=== PATIENT | male | born 1950 | race African-American/Black ===

== ENCOUNTER → 2017-08-24 | Outpatient (CLI) | payer MEDICARE, OTHER ==
--- NOTE | 2017-08-24 14:44 | RADIOLOGY REPORT (SQ) ---
EXAM DESCRIPTION: VENOUS UNILATERAL LOWER COMPLETED DATE/TIME: 08/24/2017 2:21 pm REASON FOR STUDY: LLE PAIN M79.605 PAIN IN LEFT LEG COMPARISON: None. TECHNIQUE: Dynamic and static rdz scale and color images acquired of the left leg venous system. Se lected spectral images acquired with additional compression and augmentation maneuvers. The contralat eral common femoral vein and saphenofemoral junction were also imaged. Images stored on PACS. LIMITATIONS: None. FINDINGS: COMMON FEMORAL: Normal phasicity, compression and augmentation. No visualized echogenic ma terial on rdz scale. No defects on color images. FEMORAL: Normal compression and augmentation. No visualized echogenic material on rdz scale. No defe cts on color images. POPLITEAL: Normal compression, augmentation. No visualized echogenic material on rdz scale. No defec ts on color images. CALF VESSELS: Normal compression, augmentation. No visualized echogenic material on drz scale. No de fects on color images. GSV and SSV: Normal compression, augmentation. No visualized echogenic material on rdz scale. No def ects on color images. ANY DEEP VENOUS INSUFFICIENCY: No. ANY EVIDENCE OF POPLITEAL CYST: No. OTHER: No other significant finding. CONTRALATERAL COMMON FEMORAL VEIN AND SAPHENOFEMORAL JUNCTION: Normal phasicity, compression and augmentation. No visualized echogenic material on rdz scale. No de fects on color images. IMPRESSION: NO EVIDENCE DVT OR SVT IN THE LEFT LEG. TECHNICAL DOCUMENTATION: JOB ID: [id number] [employer]- All Rights Reserved
== END ==
LOC: SP 12:47
PROVIDERS: ATTEND Physician Assistant Medical
DX: M79.605 Pain in left leg (principal); Z86.718 Personal history of other venous thrombosis and embolism
CPT/HCPCS: 93971

== ENCOUNTER → 2018-02-06 | Outpatient (CLI) | payer OTHER ==
--- NOTE | 2018-02-06 19:16 | RADIOLOGY REPORT (SQ) ---
EXAM DESCRIPTION: MRI RT LOWER JOINT WITHOUT COMPLETED DATE/TIME: 02/06/2018 3:24 pm REASON FOR STUDY: ANILA KNEE PAIN COMPARISON: None. TECHNIQUE: Rightknee images acquired and stored on PACS. Multiplanar images include fat sensitive s equences as T1, water sensitive sequences as FST2 or STIR, cartilage sensitive sequences as FSPD, and gradient echo sequences. LIMITATIONS: None. FINDINGS: JOINT AND BURSAE: Small suprapatellar knee joint effusion. There is a Rvai's cyst with m ultiple subcentimeter loose bodies present. There are also subcentimeter loose bodies along a disten ded popliteus tendon sheath. These findings are best shown on coronal images 22-24, axial image 20, and sagittal image 16 BONE CORTEX AND MARROW: No alteration of signal to suggest marrow replacement. No worrisome bone lesi ons. No occult fracture. ACL: Intact anterior band PCL: Intact. MCL: Intact. No periligamentous edema or fluid. LCL: Intact. No periligamentous edema or fluid. MEDIAL MENISCUS: Diffuse horizontal tear mid body and posterior horn medial meniscus. No paramenisca l cyst. LATERAL MENISCUS: Diffuse horizontal tear throughout the entire lateral meniscus. No parameniscal cy st. MEDIAL COMPARTMENT: Moderate chondromalacia. No bone bruises or reactive marrow edema. Small osteoph ytes. LATERAL COMPARTMENT: Moderate to high-grade chondromalacia. No bone bruises or reactive marrow edema. No osteophytes. PATELLA: High-grade patellar chondromalacia. Small subcortical cyst in the anterior aspect lateral f emoral condyle at the patellofemoral joint. Medial and lateral retinacula intact. EXTENSOR MECHANISM: Intact. Quadriceps and patella tendons normal. SOFT TISSUES: Adjacent muscles and subcutaneous tissues normal. Normal flow void in popliteal artery and vein. OTHER: No other significant finding. IMPRESSION: Diffuse internal derangement as above TECHNICAL DOCUMENTATION: JOB ID: [id number] [employer]- All Rights Reserved Reading location - IP/workstation name: [email or web address]
--- NOTE | 2018-02-07 09:07 | RADIOLOGY REPORT (SQ) ---
EXAM DESCRIPTION: MRI LT LOWER JOINT WITHOUT COMPLETED DATE/TIME: 02/06/2018 3:24 pm REASON FOR STUDY: ANILA KNEE PAIN COMPARISON: None. TECHNIQUE: Leftknee images acquired and stored on PACS. Multiplanar images include fat sensitive se quences as T1, water sensitive sequences as FST2 or STIR, cartilage sensitive sequences as FSPD, and gradient echo sequences. LIMITATIONS: None. FINDINGS: JOINT AND BURSAE: Small suprapatellar knee joint effusion. Small Ravi's cyst with 1 cm l oose body, best shown on axial image 20 BONE CORTEX AND MARROW: No alteration of signal to suggest marrow replacement. No worrisome bone lesi ons. No occult fracture. ACL: Diffusely thin, with an intact anterior band PCL: Intact. MCL: Intact. No periligamentous edema or fluid. LCL: Intact. No periligamentous edema or fluid. MEDIAL MENISCUS: Diffuse horizontal tear mid body and posterior horn medial meniscus LATERAL MENISCUS: No tears. No abnormal signal. MEDIAL COMPARTMENT: Cartilage preserved. No bone bruises or reactive marrow edema. No osteophytes. LATERAL COMPARTMENT: Cartilage preserved. No bone bruises or reactive marrow edema. No osteophytes. PATELLA: High-grade patellar chondromalacia. No subchondral cysts. Medial and lateral retinacula inta ct. EXTENSOR MECHANISM: Intact. Quadriceps and patella tendons normal. SOFT TISSUES: Adjacent muscles and subcutaneous tissues normal. Normal flow void in popliteal artery and vein. OTHER: No other significant finding. IMPRESSION: High-grade chondromalacia patella Horizontal tear mid body and posterior horn medial meniscus Small Ravi's cyst with 1 cm loose body TECHNICAL DOCUMENTATION: JOB ID: [id number]- All Rights Reserved Reading location - IP/workstation name: [email or web address]
== END ==
LOC: RAD 13:52
PROVIDERS: ATTEND Family Medicine
DX: M17.0 Bilateral primary osteoarthritis of knee (principal); M22.42 Chondromalacia patellae, left knee; M22.41 Chondromalacia patellae, right knee

== ENCOUNTER → 2019-05-08 | Outpatient (CLI) | payer OTHER ==
--- NOTE | 2019-05-08 13:16 | RADIOLOGY REPORT (SQ) ---
EXAM DESCRIPTION: MRI RT LOWER JOINT WITHOUT COMPLETED DATE/TIME: 05/08/2019 10:53 am REASON FOR STUDY: RIGHT KNEE INSTABILITY COMPARISON: None. TECHNIQUE: Rightknee images acquired and stored on PACS. Multiplanar images include fat sensitive s equences as T1, water sensitive sequences as FST2 or STIR, cartilage sensitive sequences as FSPD, and gradient echo sequences. LIMITATIONS: None. FINDINGS: JOINT AND BURSAE: Small effusion. BONE CORTEX AND MARROW: No alteration of signal to suggest marrow replacement. No worrisome bone lesi ons. No occult fracture. ACL: Intact. PCL: Intact. MCL: Intact. No periligamentous edema or fluid. LCL: Intact. No periligamentous edema or fluid. MEDIAL MENISCUS: Horizontal tear posterior horn. LATERAL MENISCUS: Horizontal tear anterior horn extending to the root. MEDIAL COMPARTMENT: Mild osteoarthritis. No subchondral edema. LATERAL COMPARTMENT: Moderate osteoarthritis. Subchondral edema femoral condyle anterior to the yobani cular surface. Mild subchondral edema anterior tibial plateau. PATELLA: High riding patella. Moderate osteoarthritis. EXTENSOR MECHANISM: Intact. Quadriceps and patella tendons normal. SOFT TISSUES: Small Ravi cyst with dependent debris. OTHER: No other significant finding. IMPRESSION: 1. Horizontal tears posterior horn medial meniscus and anterior horn lateral meniscus. 2. Osteoarthritis, more advanced in the patellofemoral and lateral compartments. 3. Small Ravi's cyst. TECHNICAL DOCUMENTATION: JOB ID: [id number] 2012 [employer]- All Rights Reserved Reading location - IP/workstation name: [email or web address]
== END ==
LOC: RAD 10:00
PROVIDERS: ATTEND Physician Assistant
DX: M25.361 Other instability, right knee (principal); M17.11 Unilateral primary osteoarthritis, right knee; M71.21 Synovial cyst of popliteal space [Baker], right knee; S83.241A Other tear of medial meniscus, current injury, right knee, initial encounter; S83.281A Other tear of lateral meniscus, current injury, right knee, initial encounter; X58.XXXA Exposure to other specified factors, initial encounter

== ENCOUNTER 2019-06-21 09:56 | Day surgery (SDC) | payer MEDICARE, OTHER ==
[~2019-06-21 09:56] MED LIST: DORZOLAMIDE HCL 2%/TIMOLOL MALEAT 0.5% OPH SOLN 10 ML OD PRN; KETOROLAC TROMETHAMINE 0.45% 4 DROP/0.4 ML DROPERETTE OD PRN
[2019-06-21] MEDS ORDERED: EPINEPHRINE INJ/PF 1 MG/1 ML AMPULE ONE (09:58)
[2019-06-21] MEDS ORDERED: LIDOCAINE 1%/PHENYLEPHRINE 1.5% 1 ML VIAL ONE (09:59)
[2019-06-21] MEDS ORDERED: CHONDR SU A NA/HYALUR INTRAOC KIT (SURGICARE) ONE (10:00)
[2019-06-21] MEDS: TETRACAINE HCL 0.5% OPH SOLN 4 ML OD PRN ×3 (11:00→11:27)
[2019-06-21] MEDS: BESIFLOXACIN HCL 0.6% OPH SUSP 5 ML BOTTLE OD PRN ×3 (11:01→11:48)
[2019-06-21] MEDS: CYCLOPENTOLATE 0.2%/PHENYLEPHRINE 1% OPH SOLN 2 ML OD PRN ×3 (11:01→11:22)
[2019-06-21] MEDS: TROPICAMIDE 1% OPH SOLN 15 ML OD PRN ×3 (11:01→11:22)
[2019-06-21] MEDS ORDERED: MIDAZOLAM 2 MG/2 ML INJ ONE (11:17)
[2019-06-21] MEDS ORDERED: FENTANYL CITRATE INJ/PF 100 MCG/2 ML AMPUL ONE (11:17)
== END 2019-06-21 12:33 | disposition home or self-care (01) ==
LOC: SC 09:56
PROVIDERS: ATTEND Ophthalmology
DX: H25.11 Age-related nuclear cataract, right eye (principal); Z79.899 Other long term (current) drug therapy; Z79.02 Long term (current) use of antithrombotics/antiplatelets; Z79.82 Long term (current) use of aspirin; F17.210 Nicotine dependence, cigarettes, uncomplicated; I10 Essential (primary) hypertension; J44.9 Chronic obstructive pulmonary disease, unspecified
CPT/HCPCS: 66984; 00142; V2632; J2250; J3490 ×2; A9270; J0171; J3010; J2370; 142

== ENCOUNTER 2019-07-03 08:53 | Day surgery (SDC) | payer MEDICARE, OTHER ==
[~2019-07-03 08:53] MED LIST changes: +CHONDR SU A NA/HYALUR INTRAOC KIT (SURGICARE) ONE; -DORZOLAMIDE HCL 2%/TIMOLOL MALEAT 0.5% OPH SOLN 10 ML OD PRN; +DORZOLAMIDE HCL 2%/TIMOLOL MALEAT 0.5% OPH SOLN 10 ML OS PRN; +EPINEPHRINE INJ/PF 1 MG/1 ML AMPULE ONE; -KETOROLAC TROMETHAMINE 0.45% 4 DROP/0.4 ML DROPERETTE OD PRN; +KETOROLAC TROMETHAMINE 0.45% 4 DROP/0.4 ML DROPERETTE OS PRN; +LIDOCAINE 1%/PHENYLEPHRINE 1.5% 1 ML VIAL ONE; +MIDAZOLAM 2 MG/2 ML INJ ONE
[2019-07-03] MEDS: BESIFLOXACIN HCL 0.6% OPH SUSP 5 ML BOTTLE OS PRN ×3 (09:35→10:27)
[2019-07-03] MEDS: TROPICAMIDE 1% OPH SOLN 15 ML OS PRN ×3 (09:35→09:55)
[2019-07-03] MEDS: CYCLOPENTOLATE 0.2%/PHENYLEPHRINE 1% OPH SOLN 2 ML OS PRN ×3 (09:35→09:55)
[2019-07-03] MEDS: TETRACAINE HCL 0.5% OPH SOLN 4 ML OS PRN ×3 (09:36→10:07)
[2019-07-03] MEDS ORDERED: MIDAZOLAM 2 MG/2 ML INJ ONE (09:51)
== END 2019-07-03 11:04 | disposition home or self-care (01) ==
LOC: SC 08:53
PROVIDERS: ATTEND Ophthalmology
DX: H25.12 Age-related nuclear cataract, left eye (principal); Z98.41 Cataract extraction status, right eye; Z79.899 Other long term (current) drug therapy; Z79.02 Long term (current) use of antithrombotics/antiplatelets; F17.210 Nicotine dependence, cigarettes, uncomplicated; Z79.82 Long term (current) use of aspirin; J44.9 Chronic obstructive pulmonary disease, unspecified; I25.2 Old myocardial infarction
CPT/HCPCS: 66984; 00142; V2632; J2250; J3490 ×2; A9270; J0171; J2370; 142

== ENCOUNTER 2020-06-09 08:27 | Emergency (ER) | payer MEDICARE, OTHER ==
[2020-06-09 09:00] LABS: ABSOLUTE BASOPHILS # (AUTO) 0.1 10^3/uL (0.0-0.2); ABSOLUTE LYMPHOCYTES (AUTO) 1.2 10^3/uL (0.5-4.7); ABSOLUTE MONOCYTES (AUTO) 2.2 10^3/uL (0.1-1.4); ABSOLUTE NEUT (AUTO) 10.3 10^3/uL (1.7-8.2); BASOPHILS % (AUTO) 0.6 % (0-2); EOSINOPHILS % (AUTO) 0.1 % (0-6); HEMATOCRIT 33.9 % (37.9-51.0); HEMOGLOBIN 10.6 g/dL (13.5-17.0); LYMPHOCYTES % (AUTO) 8.9 % (13-45); MEAN CORPUSCULAR HEMOGLOBIN 25.4 pg (27.0-33.4); MEAN CORPUSCULAR HGB CONC 31.4 g/dL (32.0-36.0); MEAN CORPUSCULAR VOLUME 81 fl (80-97); MONOCYTES % (AUTO) 15.7 % (3-13); PLATELET COUNT 230 10^3/uL (150-450); RED BLOOD COUNT 4.19 10^6/uL (4.35-5.55); RED CELL DISTRIBUTION WIDTH 15.2 % (11.5-14.0); SEGMENTED NEUTROPHILS % (AUTO) 74.7 % (42-78); TOTAL CELLS COUNTED % (AUTO) 100 %; WHITE BLOOD COUNT 13.8 10^3/uL (4.0-10.5)
[2020-06-09 09:05] LABS: INTERNATIONAL RATION (INR) 1.13; PROTHROMBIN TIME 14.7 SEC (11.4-15.4)
[2020-06-09 09:33] LABS: TROPONIN I 7.1 ng/mL
--- NOTE | 2020-06-09 09:36 | RADIOLOGY REPORT (SQ) ---
EXAM DESCRIPTION: CHEST SINGLE VIEW IMAGES COMPLETED DATE/TIME: 06/09/2020 6:13 am REASON FOR STUDY: shortness of breath COMPARISON: None. EXAM PARAMETERS: NUMBER OF VIEWS: One view. TECHNIQUE: Single frontal radiographic view of the chest acquired. RADIATION DOSE: NA LIMITATIONS: External leads partially obscure underlying structures. FINDINGS: LUNGS AND PLEURA: There are some patchy opacities, most pronounced in the left lower lung. No pleural effusion or pneumothorax identified. Lungs are mildly hyperinflated which may reflect u nderlying COPD. MEDIASTINUM AND HILAR STRUCTURES: No masses. Contour normal. HEART AND VASCULAR STRUCTURES: Heart normal in size. Normal vasculature. BONES: No acute findings. HARDWARE: None in the chest. OTHER: No other significant finding. IMPRESSION: Patchy opacities, most pronounced in the left lung base worrisome for infection. TECHNICAL DOCUMENTATION: JOB ID: [id number] 2010 [employer] All Rights Reserved Reading location - IP/workstation name: [email or web address]
[2020-06-09 09:42] LABS: ALBUMIN 4.4 g/dL (3.5-5.0); ALKALINE PHOSPHATASE 100 U/L (38-126); ANION GAP 13 (5-19); ASPARTATE AMINO TRANSFERASE 132 U/L (17-59); BILIRUBIN,DIRECT 0.1 mg/dL (0.0-0.4); BILIRUBIN,TOTAL 1.8 mg/dL (0.2-1.3); BLOOD UREA NITROGEN 19 mg/dL (7-20); CALCIUM 9.2 mg/dL (8.4-10.2); CARBON DIOXIDE 19 mmol/L (22-30); CHLORIDE 101 mmol/L (98-107); GLUCOSE 183 mg/dL (75-110); POTASSIUM 4.6 mmol/L (3.6-5.0); TOTAL PROTEIN 7.4 g/dL (6.3-8.2)
[2020-06-09] MEDS ORDERED: ASPIRIN 81 MG TABLET, CHEWABLE PO ONE (09:50)
[2020-06-09] MEDS ORDERED: NITROGLYCERIN 0.4 MG/TAB 25 TAB/BOTTLE SL PRN (09:50)
[2020-06-09] MEDS ORDERED: NITROGLYCERIN/D5W 50 MG/250 ML RTUINJ IV PRN (09:51)
[2020-06-09 10:20] LABS: A TYPE INFLUENZA AG NEGATIVE (NEGATIVE); B INFLUENZA AG NEGATIVE (NEGATIVE)
[2020-06-09 10:21] LABS: ARTERIAL BLOOD BASE EXCESS -3.9 mmol/L; ARTERIAL BLOOD FIO2 45%; ARTERIAL BLOOD HCO3 20.7 mmol/L (20-24); ARTERIAL BLOOD PCO2 36.4 mmHg (35-45); ARTERIAL BLOOD PH 7.37 (7.35-7.45); ARTERIAL BLOOD PO2 93.2 mmHg (80-100); ARTERIAL BLOOD TOTAL CO2 21.8 mmol/L (23-27)
[2020-06-09] MEDS ORDERED: MORPHINE SULFATE 10 MG/ML INJ IV ONE (10:41)
[2020-06-09 11:38] LABS: APPEARANCE,URINE SLIGHTLY-CLOUDY; BILIRUBIN,URINE NEGATIVE (NEGATIVE); COLOR,URINE AMBER; GLUCOSE, URINE NEGATIVE (NEGATIVE); KETONES,URINE NEGATIVE (NEGATIVE); LEUKOCYTE ESTERASE,URINE TRACE (NEGATIVE); NITRITE,URINE POSITIVE (NEGATIVE); PROTEIN,URINE 100 mg/dL (NEGATIVE); URINE SPECIFIC GRAVITY 1.025; UROBILINOGEN,URINE NEGATIVE mg/dL (<2.0)
[2020-06-09] MEDS ORDERED: CEFTRIAXONE 1 GM/D5W RTU 1 GM/50 ML RTUPB IV ONE (13:13)
--- NOTE | 2020-06-09 13:24 | ER Document Report ---
Entered by LILLIAM GALVAN SCRIBE 06/09/20 0872 Acting as scribe for:CHERELLE LYNCH MD ED Respiratory Problem - General Chief Complaint: Respiratory Distress Stated Complaint: POSSIBLE RESPIRATORY DISTRESS Primary Care Provider: RUBY BERMUDEZ PA [Primary Care Provider] - Follow up as needed Mode of Arrival: Ambulatory Information source: Patient Notes: This 70 year old male patient presents to the emergency department today with complaints of shortness of breath which started last night. Patient has a history of COPD and he worked around a lot of dust yesterday and he thinks that this flared his COPD. He used inhalers and nebulizer treatments last night and they helped but this morning his wheezing and shortness of breath got worse and they did not help. EMS reports a room air oxygen saturation in the 70s on arrival, he was given 125 mg Solu-Medrol, 2 g magnesium, and 5 albuterol treatments by EMS. TRAVEL OUTSIDE OF THE [place] IN LAST 30 DAYS: No - HPI Patient complains to provider of: COPD, Short of breath Onset: Yesterday - last night Duration: Worse/persistent - Related Data Allergies/Adverse Reactions: No Known Allergies Allergy (Verified 07/03/19 09:37) Past Medical History - General Information source: Patient - Social History Smoking Status: Current Every Day Smoker Cigarette use (# per day): Yes Frequency of alcohol use: None Drug Abuse: None Lives with: Family Family History: Reviewed & Not Pertinent - Past Medical History Cardiac Medical History: Reports: Hx Coronary Artery Disease, Hx Heart Attack - 1987 , Hx Hypertension Pulmonary Medical History: Reports: Hx COPD Surgical Hx: Negative Review of Systems - Review of Systems Constitutional: denies: Chills, Fever EENT: No symptoms reported Cardiovascular: No symptoms reported Respiratory: See HPI, Short of breath, Other - chest tightness Gastrointestinal: denies: Diarrhea, Nausea, Vomiting Genitourinary: No symptoms reported Male Genitourinary: No symptoms reported Musculoskeletal: No symptoms reported Skin: No symptoms reported Hematologic/Lymphatic: No symptoms reported Neurological/Psychological: No symptoms reported -: Yes All other systems reviewed and negative Physical Exam - Vital signs Vitals: Temp 98.1 F 06/09/20 08:27 - Notes Notes: Physical Exam: General: Alert, appears somewhat short of breath initially. HEENT: Normocephalic. Atraumatic. PERRL. Extraocular movements intact. Oropharynx clear. Neck: Supple. Non-tender. Respiratory: Mild respiratory distress initially, on bi-pap. Lungs are clear to auscultation bilaterally. Cardiovascular: Regular rate and rhythm. Abdominal: Normal Inspection. Non-tender. No distension. Normal Bowel Sounds. Back: No gross abnormalities. Extremities: Moves all four extremities. Upper extremities: Normal inspection. Normal ROM. Lower extremities: Normal inspection. No edema. Normal ROM. Neurological: Normal cognition. AAOx4. Normal speech. Psychological: Normal affect. Normal Mood. Skin: Warm. Dry. Normal color. Course - Re-evaluation Re-evalutation: 06/09/20 10:21 06/09/20 10:16 Patient's troponin level returned showing an elevation 7.0. Patient states that he has 3 out of 5 chest pain at this time. Patient reports that he has had chest pain for the past 2days. Patient states that he took sublingual nitroglycerin x2 this a.m. prior to calling EMS. Patient was brought in by EMS due to COPD exacerbation with shortness of breath and sats were in the 70s on their arrival at the scene. Patient was given 5 nebulized treatments in route along with IV Solu-Medrol, and 2 g of magnesium sulfate. On arrival patient's respiratory distress was improved on CPAP and patient was transferred over to BiPAP per orders. Patient reports that has shortness of breath was much improved. Troponin and emergency department testing today, the likelihood that their symptoms are related to a heart attack is very low (estimated risk of heart attack or over the next 30 days of less than 1%). Initial twelve-lead EKG shows sinus tachycardia at 110 with interventricular conduction delay incomplete left bundle branch block pattern and biatrial abnormalities. Patient was has a lot of artifact on this initial EKG otherwise a normal DC interval widened QRS interval consistent with an incomplete left bundle branch block and QT interval appears to be prolonged. Normal axis. LVH criteria noted. Patient reports that he is on Xarelto due to blood clots in his left lower leg and that he is taking his Xarelto as instructed for the past couple years states his last dose was last p.m. Patient has been given 4 baby aspirin's nitroglycerin drip at this time with a chest discomfort down to 1 out of 5. Case was discussed with Dr. Vivek Nieto who recommended that we transfer patient to [facility] if they have bed availability and and patient is a candidate for transfer. 06/09/20 10:20 06/09/20 13:10 Patient reports she is chest pain-free. Patient is on a nitroglycerin drip and BiPAP patient's blood pressure currently is 133/94 sats 97% on 50 mcg/min nitroglycerin drip at this time. - Vital Signs Vital signs: Temp Pulse Resp BP Pulse Ox 98.1 F 13 129/84 H 99 06/09/20 08:29 06/09/20 12:15 06/09/20 12:15 06/09/20 12:15 Vital signs stable. - Laboratory Result Diagrams: 06/09/20 08:35 06/09/20 08:35 Laboratory results interpreted by me: 06/09/20 06/09/20 06/09/20 08:35 08:35 08:35 WBC 13.8 H RBC 4.19 L Hgb 10.6 L Hct 33.9 L MCH 25.4 L MCHC 31.4 L RDW 15.2 H Lymph % (Auto) 8.9 L Tift % (Auto) 15.7 H Absolute Neuts (auto) 10.3 H Absolute Monos (auto) 2.2 H ABG Total CO2 Sodium 133.1 L Carbon Dioxide 19 L Glucose 183 H Lactic Acid Total Bilirubin 1.8 H AST 132 H Creatine Kinase NT-Pro-B Natriuret Pep 3090 H Urine Protein Urine Blood Urine Nitrite Ur Leukocyte Esterase 06/09/20 06/09/20 06/09/20 08:35 09:23 09:23 WBC RBC Hgb Hct MCH MCHC RDW Lymph % (Auto) Tift % (Auto) Absolute Neuts (auto) Absolute Monos (auto) ABG Total CO2 21.8 L Sodium Carbon Dioxide Glucose Lactic Acid 3.1 H Total Bilirubin AST Creatine Kinase 894 H NT-Pro-B Natriuret Pep Urine Protein Urine Blood Urine Nitrite Ur Leukocyte Esterase 06/09/20 10:43 WBC RBC Hgb Hct MCH MCHC RDW Lymph % (Auto) Tift % (Auto) Absolute Neuts (auto) Absolute Monos (auto) ABG Total CO2 Sodium Carbon Dioxide Glucose Lactic Acid Total Bilirubin AST Creatine Kinase NT-Pro-B Natriuret Pep Urine Protein 100 H Urine Blood MODERATE H Urine Nitrite POSITIVE H Ur Leukocyte Esterase TRACE H Patient laboratories disclose that there is a urinary tract infection is patient will be started on antibiotic. Culture will be done. 06/09/20 13:16 Rapid Covid test negative. Patient has had troponins x3 initial 7.1, second set 7.5, third set 9.5. Patient remains hemodynamically stable chest pain-free. - Diagnostic Test Radiology reviewed: Image reviewed, Reports reviewed Radiology results interpreted by me: 06/09/20 13:15 Chest X-Ray 06/09/20 09:13 IMPRESSION: Patchy opacities, most pronounced in the left lung base worrisome for infection. Chest x-ray shows patchy opacities concerning for left lung base worrisome infection. - EKG Interpretation by Me Additional EKG results interpreted by me: 06/09/20 13:17 Twelve-lead EKG initial shows sinus tachycardia rate of 110 biatrial abnormalities intraventricular conduction delay and consider atypical left bundle branch block pattern. Artifact noted on this exam patient has a normal axis DC interval within normal range QRS widening and QT interval prolonged. Left ventricular hypertrophy with repull change peaked T waves noted in V2 V3. No acute STEMI noted on this exam. Second twelve-lead EKG shows sinus tachycardia rate of 110 biatrial abnormalities interventricular conduction delay and an atypical left bundle branch block pattern. Sinus tach at 110 artifact noted again in this twelve- lead EKG DC interval within normal range QRS widening QT interval prolonged left ventricular hypertrophy with repull changes and peaked T waves noted in the to V3 normal axis no acute STEMI. Third twelve-lead EKG done at 1245 shows normal sinus rhythm rate of 92 biatrial abnormalities noted on P waves nonspecific intraventricular conduction delay left ventricular hypertrophy noted inferior infarct age indeterminant patient has a normal DC interval widened QRS and left ventricular hypertrophy with peaked T waves noted greatest in V2 and V3 no acute STEMI normal axis. Critical Care Note - Critical Care Note Total time excluding time spent on procedures (mins): 55 - Management of patient with with COPD exacerbation hypoxia on arrival and chest pain. Elevated troponin a non-STEMI elevation of troponin. Management of patient's blood pressure management chest pain control and coordinating with licensed practical nurse instructor in transfer center. Patient is Covid negative at this time on rapid test in our department. Discharge - Discharge Clinical Impression: Non-STEMI (non-ST elevated myocardial infarction), COPD exacerbation, Urinary tract infection Condition: Critical Disposition: [facility] Referrals: RUBY BERMUDEZ PA [Primary Care Provider] - Follow up as needed I personally performed the services described in the documentation, reviewed and edited the documentation which was dictated to the scribe in my presence, and it accurately records my words and actions.
[2020-06-09 17:16] VITALS: BP 149/88
--- NOTE | 2020-06-10 08:09 | EKG REPORT ---
SEVERITY:- ABNORMAL ECG - SINUS RHYTHM BIATRIAL ABNORMALITIES NONSPECIFIC INTRAVENTRICULAR CONDUCTION DELAY LEFT VENTRICULAR HYPERTROPHY INFERIOR INFARCT, AGE INDETERMINATE : Confirmed by: Thu Arriaga 10-Jun-2020 08:08:24
--- NOTE | 2020-06-10 08:10 | EKG REPORT ---
SEVERITY:- ABNORMAL ECG - SINUS TACHYCARDIA BIATRIAL ABNORMALITIES IVCD, CONSIDER ATYPICAL LBBB : Confirmed by: Thu Arriaga 10-Jun-2020 08:08:51
--- NOTE | 2020-06-10 08:10 | EKG REPORT ---
SEVERITY:- ABNORMAL ECG - SINUS TACHYCARDIA BIATRIAL ABNORMALITIES IVCD, CONSIDER ATYPICAL LBBB PROBABLE INFERIOR INFARCT WITH LBBB : Confirmed by: Thu Arriaga 10-Jun-2020 08:08:37
== END 2020-06-09 17:39 | disposition short-term general hospital (02) ==
LOC: ER 08:27
DX: I21.4 Non-ST elevation (NSTEMI) myocardial infarction (principal); J44.1 Chronic obstructive pulmonary disease with (acute) exacerbation; N39.0 Urinary tract infection, site not specified; R06.02 Shortness of breath; F17.210 Nicotine dependence, cigarettes, uncomplicated; I25.2 Old myocardial infarction; Z20.828 Contact with and (suspected) exposure to other viral communicable diseases
CPT/HCPCS: 93005; 99285; 96375; 96365; 96366; 36415; 87040; 87086; 82803; 82550; 83605; 85025; 85610; 0241U ×4; 87077; 87088; 80053; 81001; 84484; 87186; 87804; 87150 ×26; 83880; 71045; 93010; A9270 ×2; J2270; J3490; J0696; C9803